=== PATIENT | male | born 1960 | race African-American/Black ===

== ENCOUNTER 2025-03-11 19:05 | Emergency (ER) | payer MEDICAID, SELFPAY ==
--- OUTSIDE RECORDS SUMMARY | 2024-10-31 11:20 | XMS_ITS | Continuity of Care Document ---
Author Organization [address] [place] [id number] [place] [address] [address] [place] [address] Phone Care Team Providers Care Recordist Name Role Phone Ivan Glover DMD Unavailable Unavailable Allergies, Adverse Reactions, Alerts Substance Reaction Status Criticality metrizamide Active No Information chlorpromazine Active No Informatio n Problems Condition Type Effective Dates (start - stop) Clini billy Status Comments No Known Problems Procedures Procedure Date Complete Denture-Maxillary Complete Denture-Mandibular Try In FULL FIELD ERG W/I&R SBSQ NF CARE SF MDM 10 DEBRIDE NAIL 6 OR MORE Bite Registration COMPRE OPH EXAM NEW PT 1/> Compsve Oral Eval- New/Est Pat Complete Series Of Radiographic Images J Denture Impression Advance Directives Directive Yes / No Effective Date File Name No Information Encounters Encounter Description Practice Location Reason(s) For Visit Diagnoses Date Provider Providers Copied on Encounter [address] [place] [address], [id number] [place] [address], [place], [place], [id number], tel:[phone] Zz Roge Kent Complete loss of teeth, unspecified cause, unspecified class GILMA Mireles. Referring Provider: Robert Tinoco. [address] [place] [address], [id number] [place] [address], [place], [place], [id number], tel:[phone] [facility] [place] Complete loss of teeth, unspecified cause, unspecified class Mar-2 5 GILMA Mireles. Referring Provider: Robert Tinoco. 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 , [place]. Referring Provider: Robert Tinoco. [address] [place] [address], [address] [place] [address], [place], [place], [id number], tel:[phone] [facility] [place] [place] Nail dystrophyPeri pheral vascular disease, unspecified 5 Pee Stevenson. [address] [facility], [address], [place], [place], [id number], [place]. tel:[phone] Referring Provider: Robert Tinoco. [address] [place] [address], [id number] [place] [address], [place], [place], [id number], tel:[phone] [facility] [place] Complete loss of teeth, unspecified cause, unspecified class b-0 5 GILMA Mireles. Referring Provider: Robert Tinoco. [address] [place] [address], [id number] [place] [address], [place], [place], [id number], [place] tel:[phone] [facility] [place] [place] Blurry vision (chief complaint) Cataract (chief complaint) Age-related nuclear cataract, right eyePresence of intraocular lensMacula scars of posterior pole (postinflamma tory) (post-traumat ic), bilateral Feb-0 6-202 5 [facility] , [place]. Referring Provider: Robert Tinoco. [address] [place] [address], [address] [place] [address], [place], [place], [id number], tel:[phone] Brianna Kent No Information GILMA Aldridge. [address] [place] [address], [address] [facility] [place] [address], [place], [place], [id number], tel:[phone] Brianna Kent Encounter for dental examination and cleaning without abnormal findingsCompl ete loss of teeth, unspecified cause, unspecified class ALESIA Fernandez. Referring Provider: Robert Tinoco. Family History Family Member Type Diagnosis Age At Onset No Information Payers Payer name Insurance type Covered libertarian ID Authoriza tijitendra(s) DDS Medicaid [facility] [id number] Social History Type Description Quantity Date Captured Comments Sex Male Smoking Status No Information Chief Complaint And Reason For Visit No Information Reason For Referral Reason For Referral No Information History Of Present Illness Encounter Date Complaint History Of Prese nt Illness ERG TDS16 Cataract The patient is p resent for evaluation of Cataract in the right eye and left eye. The symptom is constant. The condition is mild. Patient denies: eye pain. Blurry vision The 64 year old patient presents for evaluation of Blurry vision in the right eye and left eye. The symptom is constant. The condition is not any better. Patient denies: flashes. Functional Status Date Functional Assessmen t No Information Instructions Date Instruction Additional Infor alexis Impression/Plan - ER G shows reduced global retinal function. We will monitor for progression. 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 1-5 digital nails bi laterally were mycotic and dystrophic nails were debrided both in length and thickness as needed. The nails were debrided using a power drill and nail nipper. I will follow up in 2-3 months for continued at risk foot care. Related to Nail dystrophy Impression/Plan - Ca taracts are mild; we will monitor for progression. Related to Age-related nuclear cataract, right eye Impression/Plan - Im plant in Left eye is clear and stable. Cataract in Right eye is moderate; we will monitor for progression. Related to Presence of intraocular lens Impression/Plan - Le ft eye only. 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 Return in 1-3 months for ERG TDS16. Assessments Type Assessment Date No Information Patient Care Teams Name Effective Dates (start - stop) Status Members No Information
--- OUTSIDE RECORDS SUMMARY | 2025-03-11 19:17 | XMS_ITS | Clinical Summary ---
Author Organization [facility] Address [address] [place] [address] Care Team Providers Care Web Site Specialist Name Role Phone Paco Ramos MD Primary Care Provider [phone] Allergies Active Allergy Reactions Criticality Noted Date Comments Iodinated Contrast Media Unknown 11/26/2024 Medications atorvastatin (LIPITOR) 80 mg tablet 5 Active benztropine (COGENTIN) 1 mg tablet Take 1 mg by mouth in the morning and 1 mg in the evening. 5 Active celecoxib (CeleBREX) 200 mg capsule 5 Active cyclobenzaprine (FLEXERIL) 10 mg tablet 5 Active diclofenac sodium (VOLTAREN) 1 % gel 5 Active DULoxetine (CYMBALTA) [address] capsule Take 60 mg by mouth in the morning. 5 Active Jardiance 25 mg tablet 5 Active haloperidoL (HALDOL) 10 mg tablet Take 10 mg by mouth in the morning and 10 mg at noon and 10 mg in the evening. 5 Active hydrOXYzine (ATARAX) 25 mg tablet Take 25 mg by mouth in the morning and 25 mg at noon and 25 mg in the evening. 5 Active Lantus Solostar U-100 Insulin 100 unit/mL (3 mL) subcutaneous pen 5 Active lamoTRIgine (LaMICtal) 200 mg tablet Take 200 mg by mouth in the morning and 200 mg in the evening. 5 Active levETIRAcetam (KEPPRA) 1,000 mg tablet 5 Active lidocaine (LIDODERM) 5 % patch 5 Active losartan (COZAAR) 25 mg tablet 5 Active pantoprazole (PROTONIX) 40 mg EC tablet 5 Active pioglitazone (ACTOS) 30 mg tablet 5 Active tiZANidine (ZANAFLEX) 2 mg tablet 5 Active traZODone (DESYREL) 50 mg tablet Take 50 mg by mouth daily. Active LORazepam (ATIVAN) 0.5 mg tablet Take 0.5 mg by mouth in the morning and 0.5 mg in the evening. For epilepsy. Active valbenazine (Ingrezza) 40 mg capsule Take 80 mg by mouth before bedtime. Active mirtazapine (REMERON) 15 mg tabletIndications :Major depressive disorder, recurrent episode, moderate degree (HCC) Take 1 tablet (15 mg total) by mouth nightly. 5 Active HYDROcodone-aceta minophen (NORCO) 5-325 mg per tabletIndications :Pain Take 1 tablet by mouth in the morning and 1 tablet at noon and 1 tablet in the evening. Max Daily Amount: 3 tablets. 90 tablet Active paliperidone palmitate (Invega Sustenna) 117 mg/0.75 mL injection Inject 117 mg into the shoulder, thigh, or buttocks every 28 days. Active Active Problems Problem Noted Date Diagnosed Date Type 2 diabetes mellitus wit h diabetic polyneuropathy, with long-term current use of insulin 11/29/2024 Medication-induced movement disorder 11/29/2024 Neuroleptic-induced tardive dyskinesia Cerebellar infarction 11/29/2024 Status epilepticus, generalized convulsive 11/29 Iron deficiency anemia 11/29/2024 Hyperlipidemia 11/29/2024 Vascular dementia with behavior disturbance 11/02 Anxiety 11/29/2024 Schizoaffective disorder, depressive type 2024 Benign prostatic hyperplasia 11/29/2024 Constipation 11/29/2024 Gastroesophageal reflux disease 11/29/2024 Delusion 11/29/2024 Primary hypertension 11/29/2024 Resolved Problems Problem Noted Date Diagnosed Date Resolved Date Type 2 diabetes mellitus wit h stage 3a chronic kidney disease, with long-term current use of insulin 12/16/2024 02/14/2025 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 Osteomyelitis 11/29/2024 12/16/2024 Encounters Date Type Department Care Team Description 01/02/2025 Abstract [facility] [address] [facility] [address] [place] [address] Tessy Castillo CMA 12/30/2024 Refill [facility] [address] [place] [address] Jeny Walker Pain 12/30/2024 Refill [facility] [address] [place] [address] Amarilys Sanchez LPN Pain 12/30/2024 Travel 12/19/2024 1:45 PM CDT Telemedicine [facility] [address] [place] [address] Dorene Drummond FNP Major depressive disorder, recurrent episode, moderate degree (HCC) (Primary Dx); Schizoaffective disorder, depressive type (HCC); Dementia, unspecified dementia severity, unspecified dementia type, unspecified whether behavioral, psychotic, or mood disturbance or anxiety (HCC) 12/19/2024 Travel 12/19/2024 Abstract [facility] [address] [facility] [address] [place] [address] Nicolette Quinonez, CREDENTIALING ASSISTANT from Last 3 Months Social History Tobacco Use Types Packs/Day Years Used Date Smoking Tobacco: Every Day Cigarettes Tobacco Cessation:Ready to Q uit: Not Asked; Counseling Given: Not Answered Comments:Patient encouraged to consider smoking cessation Alcohol Use Standard Drinks/Week Comments Defer 0 (1 standard drink = 0.6 oz pur e alcohol) PHQ-2 Answer Date Recorded PHQ-2 Score 0 12/12/2024 Sex and Gender Information Value Date Recorded Sex Assigned at Not on file Legal Sex Male 3:40 PM CDT Gender Identity Not on file Sexual Orientation Not on file Last Filed Vital Signs Vital Sign Reading Time Taken Comments Blood Pressure 124/70 12/12/2024 9:53 AM CDT Pulse 95 12/12/2024 9:53 AM CDT Temperature 36.6 C (97.9 F) 12/12/2024 9:53 AM CDT Respiratory Rate 20 12/12/2024 9:53 AM CDT Oxygen Saturation - - Inhaled Oxygen Concentration - - Weight 118 kg (259 lb 3.2 oz) 02/13/2025 9:09 AM CDT Height 191.3 cm (6' 3.33 ) 12/12/2024 9:53 AM CD T Body Mass Index 32.11 12/12/2024 9:53 AM CDT Plan of Treatment Upcoming Encounters Date Type Department Care Team (Late st Contact Info) Description 2025 9:50 AM CDT External Patient Visit [facility] [address] [facility] [place] [place] [address] Paco Ramos MD [address] [place] [address] Health Maintenance Due Date Last Done Comments Annual Wellness 1960 Foot Exam 1960 Hemoglobin A1C 1960 Ophthalmology Exam 1970 Urine Microalbumin 1970 Pneumococcal Vaccine: 50+ Ye ars (1 of 2 - PCV) 1979 Td, Tdap Vaccines Adult 1979 Colonoscopy 2005 Shingrix (ZOSTER RECOMBINANT ) (1 of 2) 2010 RSV 60+ (1 - Risk 60-74 year s 1-dose series) 2020 Influenza Vaccination (#1) 2025 HIB Vaccines Aged Out No longer eligi ble based on patient's age to complete this topic HPV Vaccines Aged Out No longer eligi ble based on patient's age to complete this topic Hepatitis A Vaccines Aged Out No long er eligible based on patient's age to complete this topic Hepatitis B Vaccines Aged Out No long er eligible based on patient's age to complete this topic IPV Vaccines Aged Out No longer eligi ble based on patient's age to complete this topic Meningococcal Vaccines Aged Out No lo nger eligible based on patient's age to complete this topic RSV Mab Nirsevimab (Beyfortu s) <20 months Aged Out No longer eligible b ased on patient's age to complete this topic Rotavirus Vaccines Aged Out No longer eligible based on patient's age to complete this topic Insurance [employer] [address] [place] [address] GILMA [employer] Care Teams Web Site Specialist Relationship Specialty Start Date End Date Paco Ramos MD [address] [place] [address] PCP - General Internal Medicine 11/26/24
[2025-03-11] MEDS: ketamine 100 mg/mL Inj 5 mL 200 MG IM (19:20)
[2025-03-11 19:24] VITALS: BP 124/65; PULSE 109; RESP 17; TEMP 36.8; O2SAT 99; BMI 29.2
[2025-03-11 19:25] VITALS: BP 124/65; PULSE 114; O2SAT 98
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
--- NOTE | 2025-03-11 20:19 | ECG_ITS ---
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 Measurements Intervals [place] Rate: 98 P: 55 [place]: 189 QRS: 37 QRSD: 99 T: 0 QT: 352 QTc: 449 Interpretive Statements SINUS RHYTHM POSSIBLE INFERIOR MYOCARDIAL INFARCTION , PROBABLY OLD [30 ms Q WAVE IN II/aVF] No previous ECG available for comparison Electronically Signed On 03-12-2025 21:12:09 CDT by Prabhjot Ludwig M.D. [email or web address] [id number]
[2025-03-11 20:24] LABS: Hematocrit 25.8 % (37-53); Hemoglobin 8.30 g/dL (11.27-16.99); Mean Corpuscular HGB Conc 32.2 g/dL (30-55); Mean Corpuscular Hemoglobin 24.3 pg (27-33); Mean Corpuscular Volume 75.7 fl (82-101); Nucleated Red Blood Cells % 0 %; Platelet Count 315 10^3/cmm (157-399); Red Blood Count 3.41 10^6/uL (3.85-5.65); White Blood Count 5.39 10^3/uL (3.29-11.43)
[2025-03-11 20:34] VITALS: BP 150/82; PULSE 94; O2SAT 99
[2025-03-11 20:52] LABS: Alanine Aminotransferase 9 U/L (0-41); Albumin Level 3.8 g/dL (3.5-5.2); Alkaline Phosphatase 127 U/L (40-130); Anion Gap 11.9 (5-19); Aspartate Amino Transferase 14 U/L (0-40); Blood Urea Nitrogen 12 mg/dL (8-23); Calcium 9.7 mg/dL (8.5-10.5); Carbon Dioxide 25 mmol/L (22-29); Chloride 101 mmol/L (98-107); Creatinine Clr Calc Pharmacy 91.7612; Globulin 3.0 g/dL (1.3-4.6); Glucose 244 mg/dL (65-115); Osmolality Calculated 286 mOsm/kg (285-295); Potassium 3.9 mmol/L (3.5-5.1); Sodium 134 mmol/L (136-145); Thyroid Stimulating Hormone 0.95 uIU/mL (0.27-4.20); Total Protein 6.8 g/dL (6.6-8.7)
[2025-03-11 20:55] VITALS: BP 166/98; PULSE 95; O2SAT 98
[2025-03-11 21:07] LABS: Alcohol Level < 10 mg/dL (0-10); Salicylate < 0.3 mg/dL (3-10)
[2025-03-11 21:35] LABS: Acetaminophen < 5.0 ug/mL (10-30)
[2025-03-11 22:56] LABS: Glucose Urine UA 3+ (Normal); Nitrate Urine Negative (Negative)
[2025-03-11 23:01] LABS: Add Urine Microscopic? YES
[2025-03-11 23:04] LABS: PCP Screen Urine Negative (Negative)
[2025-03-11 23:07] LABS: Specific Gravity, Urine 1.034 (1.005-1.030)
[2025-03-11 23:30] VITALS: BP 133/73; PULSE 106; O2SAT 97
--- NOTE | 2025-03-12 00:35 | PC.NURSE ---
PT IS REFUSING TO LET STAFF CHECK VITAL SIGNS
--- NOTE | 2025-03-12 00:35 | PC.NURSE ---
PT CAME FROM [facility] [place], STAFF THAT TRANSFERRED THE PT STATED THE DON CALLED [facility] AND WAS TOLD IN ORDER TO GET A BED THEY HAVE TO GO THROUGH THE ER TO GET ADMITTED. [facility] STAFFING/DON STATED THERE WAS NO BEDS OPEN LOCALLY AND THAT [facility] WAS THE ONLY OPEN SPOT DUE TO WHAT [facility] TOLD THEM.
[2025-03-12 05:02] VITALS: BP 130/82; PULSE 95; O2SAT 100
--- NOTE | 2025-03-12 06:52 | PC.NURSE ---
ASSUMED CARE OF PATIENT FROM ABELARDO LLOYD AT 0652.
[2025-03-12 09:35] VITALS: BP 134/69; PULSE 95; O2SAT 96
--- NOTE | 2025-03-12 09:35 | PC.NURSE ---
PT RESTING IN BED AT THIS TIME. PT WAS COOPERATIVE AND ALLOWED THIS NURSE TO OBTAIN VITAL SIGNS. PT REQUESTED COFFEE AT THIS TIME. PSA OUTSIDE ROOM.
--- NOTE | 2025-03-12 10:14 | DCPLANNER ---
Addendum entered by Kathy Forman 03/12/25 17:50: [facility] called and they were able to secure him placement and will be coming to brick picker the patient. Addendum entered by Kathy Forman 03/12/25 14:55: [facility] declined@ 1453 per call Kalie took Addendum entered by Kathy Forman 03/12/25 13:58: @ 1336 per Avelina Balderas does not have any shirlene beds available and is not anticipating discharges soon [facility] @ 1040 declined for acuity @1150 called and spoke to Kalie about patient requested TSH, CXR and med list (faxed those @ 1319) pending psych review now Original Note: Faxed packets to [facility] (mook) Yuval Balderas [facility] (Jose) [facility] (Kashif) [place] (Samy) [facility] (Richie) Notes from table games shift manager were [facility] declined @ [address] [facility] Health per [place] no beds available [facility] no beds avail try in am
[2025-03-12] MEDS: polyethylene glycol 3350 Pkt 17 gm PO (10:22)
[2025-03-12 10:23] VITALS: BP 125/66
[2025-03-12] MEDS: sennosides-docusate Tablet 2 TAB PO (10:24)
--- NOTE | 2025-03-12 11:11 | PC.NURSE ---
PT REQUESTED LINENS TO BE CHANGED. LINENS CHANGED.
--- NOTE | 2025-03-12 11:49 | XR_ITS ---
WS: [id number] Chest 2 views, 03/12/2025 Clinical Data: PLACEMENT Comparison: None. Findings: No nodules or effusions are seen. Bilateral hilar enlargement is present. The heart is normal. The pulmonary vascularity is not increased. No pneumonia or pneumothorax is seen. XR/XR chest 2V* [id number] Impression: Bilateral hilar enlargement which can be seen with pneumonia, sarcoidosis or ot her causes. Recommend repeat CT chest in comparing the current x-ray with any p rior chest x-rays.
[2025-03-12 12:00] VITALS: BP 146/80; PULSE 90; O2SAT 96
[2025-03-12 12:29] LABS: Thyroid Stimulating Hormone 0.94 uIU/mL (0.27-4.20)
--- NOTE | 2025-03-12 12:47 | PC.NURSE ---
PT OFFERED LUNCH TRAY. PT STATED HE DID NOT WANT TO EAT IT. THIS NURSE EDUCATED PT ON THE NEED TO AT LEAST TRY AND EAT SOMETHING DUE TO PT BEING A DIABETIC. PT STATED HE WOULD TRY AND EAT SOMETHING. PT DENIES ANY FURTHER VERBALIZED QUESTIONS OR CONCERNS. PSA OUTSIDE ROOM.
[2025-03-12 12:48] LABS: Respiratory Syncytial Virus Ce NEGATIVE (Negative); SARS-CoV-2 PCR NEGATIVE (Negative)
--- NOTE | 2025-03-12 12:55 | PC.NURSE ---
PSA NOTIFIED THIS NURSE THAT PT HAD JUST THROWN UP ALL OF THE FOOD HE JUST ATE. PT STATED HE HAS HAD THIS ISSUE WITH VOMITING FOR A WHILE. DR. BYRD NOTIFIED.
--- NOTE | 2025-03-12 14:29 | PC.NURSE ---
[facility] [place] CALLED TO SPEAK WITH THIS NURSE. AN, MANOR EMPLOYEE, STATED THAT SHE DID NOT REALIZE THAT PT DID NOT HAVE A BED ASSIGNED AT THIS FACILITY. AN STATED SHE DID NOT MEAN TO JUST DUMP HIM AT OUT FACILITY. AN INFORMED THIS NURSE THAT PT WAS ACCEPTED SOMEWHERE IN [place], [place] AND THAT SHE WAS GOING TO SPEAK WITH ANOTHER CHORE TENDER IN ATTEMPTS TO FIGURE OUT THE NEXT STEPS.
--- NOTE | 2025-03-12 14:56 | PC.NURSE ---
[facility], [facility], NOTIFIED THIS NURSE THAT THEY ARE UNABLE TO MEET PT NEEDS AND ARE DECLINING TO ACCEPT PATIENT. ACCOUNTING TUTOR NOTIFIED.
[2025-03-12 17:30] VITALS: BP 119/71; PULSE 100; O2SAT 98
== END 2025-03-12 21:46 | disposition home or self-care (01) ==
PROVIDERS: Emergency Medicine; Emergency Provider Family Medicine; PCP Internal Medicine
DX: F20.9 Schizophrenia, unspecified (principal); Z11.52 Encounter for screening for COVID-19
CPT/HCPCS: 36416; 71046; 80053; 80306; 80307; 81001; 82962; 84443; 85025; 87637; 93005; 96372; 99285; J1815; J3490; J9999